=== PATIENT | female | born 1980 | race Two or more races ===

== ENCOUNTER 2019-02-12 10:40 | Emergency (ER) | payer OTHER ==
[~2019-02-12] VITALS: Ht 165.1 cm; Wt 75.3 kg
[2019-02-12 10:50] VITALS: BP 127/82
[2019-02-12] MEDS ORDERED: MORPHINE SULFATE INJ 4 MG/ML DISP.SYRIN ONE (11:16)
[2019-02-12] MEDS ORDERED: MORPHINE SULFATE INJ 2 MG/ML DISP.SYRIN IM ONE (11:30)
== END 2019-02-12 11:27 | disposition home or self-care (01) ==
LOC: ER 10:40
DX: M54.5 Low back pain (principal); G89.29 Other chronic pain
CPT/HCPCS: 96372; 99283; J2270